=== PATIENT | male | born 1965 | race African-American/Black ===

== ENCOUNTER 2025-06-01 19:52 | Emergency (ER) | payer SELFPAY ==
[~2025-06-01] VITALS: Ht 182.9 cm; Wt 110.0 kg
[2025-06-01 20:15] VITALS: O2SAT 98
[2025-06-02] MEDS ORDERED: BO1 TP (02:59)
[2025-06-02] MEDS ORDERED: AMLO10TA80 MT (03:04)
[2025-06-02] MEDS ORDERED: NEBI5TAB9 MT (03:04)
[2025-06-02 03:17] VITALS: BP 143/94; PULSE 90; RESP 14; TEMP 37; O2SAT 100
== END 2025-06-02 03:19 | disposition home or self-care (01) ==
LOC: ER 19:52
DX: M25.531 Pain in right wrist (principal); M25.561 Pain in right knee; M25.562 Pain in left knee; M54.9 Dorsalgia, unspecified; R20.0 Anesthesia of skin; R20.2 Paresthesia of skin; R53.1 Weakness; I10 Essential (primary) hypertension; M17.0 Bilateral primary osteoarthritis of knee; Z88.0 Allergy status to penicillin; Z98.1 Arthrodesis status
CPT/HCPCS: 71250; 73110; 73562; 74176; 99284